=== PATIENT | male | born 1935 | race Caucasian/White ===

== ENCOUNTER 2017-10-28 09:48 | Emergency (ER) | payer MEDICARE, OTHER ==
[~2017-10-28] VITALS: Ht 177.8 cm; Wt 86.0 kg
[~2017-10-28 09:48] MED LIST: APIX5TAB PO; ATEN25TA PO; CEFT500T3 PO; COLE625 PO; ESZO3TAB4 PO; FINA5TAB2 PO; GLIM1TAB PO; HYDR25TA5 PO; IPRASOL NEB; MUCI600T PO; MULT1TAB84 PO; MULT400T PO; NEBULIZER COMPR1 KIT; OMEP20TA93 PO; PLAV75TA29 PO; PRED20 PO; RAPA8CAP PO; SACC1CAP3 PO; SYMB160A INH; TAMS5CAP PO; VENTAER INH; ZOCO40TA PO
[2017-10-28 09:50] VITALS: BP 164/72; PULSE 67; RESP 18; TEMP 97.9; O2SAT 97
[2017-10-28] MEDS ORDERED: MAGN200T PO (10:20)
[2017-10-28] MEDS ORDERED: K-PHTAB PO (10:20)
[2017-10-28] MEDS ORDERED: PROP80CA PO (10:20)
[2017-10-28] MEDS ORDERED: SUVO1TAB4 PO (10:20)
[2017-10-28] MEDS ORDERED: PANT40TA3 PO (10:20)
[2017-10-28 10:26] VITALS: RESP 16; O2SAT 98
[2017-10-28] MEDS: RESP: ALBUTEROL 2.5 MG/IPRATROPIUM 0.5 MG NEB (SCH) INH (10:41)
--- NOTE | 2017-10-28 10:42 | PD ---
HPI Chief Complaint: Cold / Flu Symptoms Time Seen by Provider: 10:29 Travel History International Travel<30 days: No Contact w/Intl Traveler<30days: No Traveled to known affect area: No History of Present Illness HPI This patient complains of cough and congestion and shortness of breath. He denies fever or chest pain. He tried a nebulizer at home without relief. He quit smoking decades ago. He's had runny nose and congestion as well. No alleviating factors. No exacerbating factors. Symptoms severity is moderate. Duration 3 days PFSH Past Medical History Hx Anticoagulant Therapy: Yes (ELIQUIS) Arthritis: Yes Asthma: Yes Atrial Fibrillation: Yes Blood Disorders: No Heart Rhythm Problems: No Cancer: No Cardiac Catheterization: Yes (18 ANGIOPLASTIES: STARTING 1992) Cardiovascular Problems: Yes (HTN, CHOL, ANGIOPLASTY, A. FIB) High Cholesterol: Yes Chest Pain: Yes Congestive Heart Failure: Yes Coronary Artery Disease: Yes Diabetes: Yes Patient Takes Glucophage: No Diminished Hearing: No Endocrine: Yes Gastrointestinal Disorders: Yes (DUMPING SYNDROME, GERD, ULCER HX, INFLAM. COLITIS, ROTAVIRUS:DECEMBER 2014) GERD: Yes Glaucoma: No Genitourinary: Yes (BPH) Headaches: Yes Hepatitis: No Hiatal Hernia: Yes Herniated Disk: Yes Hypertension: Yes Immune Disorder: No Implanted Vascular Access Dvce: No Kidney Stones: Yes (1963) Musculoskeletal: Yes (SPINAL STENOSIS, NECK PAIN, ARTHRITIS) Neurologic: Yes (ESSENTIAL TREMOR) Psychiatric: No Reproductive: No Respiratory: Yes ("CARDIAC" ASTHMA (RESOLVED)) Immunizations Current: Yes Seizures: No Shingles: Yes Thyroid Disease: No Ulcer: Yes (GASTRIC) Influenza Vaccination: Yes Past Surgical History Abdominal Surgery: Yes (LAP. AGUSTIN, [facility]. HERNIA REP.) AICD: No Body Medical Devices: CARDIAC STENTS X 3, UMBILICAL MESH Cardiac Surgery: Yes (ANGIOPLASTY 18 TIMES (MULTIPLE STENTS)) Cholecystectomy: Yes Coronary Stent: Yes (X3) Endocrine Surgery: Yes (PARATHYROID REMOVED (SIDE?)) Eye Surgery: Yes (EBONY. CATARACT EXTRACT.) Genitourinary Surgery: Yes (TUR-P ) Joint Replacement: Yes (EBONY. 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 Flomax (Tamsulosin HCl) 0.4 Mg Cap 0.4 Mg PO DAILY Rapaflo (Silodosin) 8 Mg Cap 8 Mg PO HS Glimepiride 1 Mg Tab 1 Mg PO BID Take with breakfast or first main meal Zocor (Simvastatin) 40 Mg Tab 40 Mg PO HS Hydrochlorothiazide 25 Mg Tab 25 Mg PO DAILY Review of Systems General / Constitutional: No: Fever Eyes: No: Visual changes HENT: Positive: Rhinorrhea, Congestion, No: Headaches Cardiovascular: No: Chest Pain or Discomfort Respiratory: Positive: Cough, Shortness of Breath Gastrointestinal: No: Abdominal Pain Genitourinary: No: Dysuria Musculoskeletal: No: Pain Skin: No Rash Neurologic: No: Weakness Psychiatric: No: Depression Endocrine: No: Polydipsia Hematologic/Lymphatic: No: Easy Bruising Physical Exam Narrative GENERAL: Well-nourished, well-developed patient with cough and congestion . SKIN: Focused skin assessment reveals no rash and nodules. Skin is Warm and dry. HEAD: Atraumatic. Normocephalic. EYES: Pupils equal and round. No scleral icterus. No injection or drainage. ENT: No nasal bleeding or discharge. Mucous membranes pink and moist. NECK: Trachea midline. No JVD. CARDIOVASCULAR: Regular rate and rhythm. No murmur appreciated. RESPIRATORY: No accessory muscle use. Diminished breath sounds throughout. Diffuse rhonchi. Breath sounds equal bilaterally. GASTROINTESTINAL: Abdomen soft, non-tender, nondistended. Hepatic and splenic margins not palpable. MUSCULOSKELETAL: No obvious deformities. No clubbing. No cyanosis. No edema. NEUROLOGICAL: Awake and alert. No obvious cranial nerve deficits. Motor grossly within normal limits. Normal speech. PSYCHIATRIC: Appropriate mood and affect; insight and judgment normal. Data Data Last Documented VS Vital Signs Date Time Temp Pulse Resp B/P (MAP) Pulse Ox O2 Delivery O2 Flow Rate FiO2 10/28/17 11:32 67 16 97 Room Air 10/28/17 11:31 168/76 (106) 10/28/17 09:50 97.9 Orders Orders Influenzae A/B Antigen (10/28/17 10:35) Oximetry (10/28/17 10:35) Oxygen Administration (10/28/17 10:35) Chest, Single Ap (10/28/17 10:35) Albuterol-Ipratropium Neb (Duoneb Neb) (10/28/17 10:45) Prednisone (Deltasone) (10/28/17 10:45) MDM Medical Decision Making Medical Screen Exam Complete: Yes Emergency Medical Condition: Yes Medical Record Reviewed: Yes Differential Diagnosis Bronchitis, pneumonia, flu syndrome, COPD Narrative Course I have reviewed the patient's electronic medical record. Gave him a series of 3 nebulizer treatments I gave him 80 mg prednisone I reviewed his chest x-ray which is negative Influenza swab is negative Initial room air saturation 98% He feels much better after nebulizers. He requests antibiotic. I've given him Zithromax. He has nebulizer at home to use as needed Diagnosis Primary Impression: Acute bronchitis with bronchospasm Additional Instructions: The patient was advised to follow up with their physician and return if they worsen. Med/Other Pt SpecificInfo: Other Scripts Azithromycin (Zithromax Z-Min) 250 Mg Dspk 250 MG PO DIRECTED for Infection, #1 DSPK 0 Refills 500 MG (2 tabs) day 1, then 1 tab days 2-5. Prov: Bob Saldivar MD 10/28/17 Disposition: 01 DISCHARGE HOME Condition: Stable Bob Saldivar MD Oct 28, 2017 10:42
[2017-10-28] MEDS ORDERED: predniSONE 20 MG TAB PO ONE (10:45)
--- NOTE | 2017-10-28 11:14 | RADRPT ---
EXAM DATE/TIME: 10/28/2017 10:42 [facility] COMPARISON: CHEST SINGLE AP, September 06, 2016, 20:08. INDICATIONS : Short of breath MEDICAL HISTORY : Hypertension. Hypercholesterolemia. Congestive heart failure. Afib, Asthma SURGICAL HISTORY : Coronary artery stent. Angioplasty ENCOUNTER: Initial ACUITY: 1 day PAIN SCORE: 0/10 LOCATION: Bilateral chest FINDINGS: The cardiac silhouette is enlarged in transverse diameter. The lungs are free of acute parenchymal op acity. No effusions are identified. The background interstitium is prominent though this is likely ch ronic in nature. CONCLUSION: 1. Cardiomegaly. No acute pulmonary disease. Den Andujar MD on October 28, 2017 at 11:11 Board Certified Radiologist. This report was verified electronically.
[2017-10-28 11:31] VITALS: BP 168/76; PULSE 60; RESP 16; O2SAT 97
[2017-10-28] MEDS ORDERED: ZITHTAB PO (12:19)
[2017-10-28 12:45] VITALS: BP 127/58
== END 2017-10-28 12:47 | disposition home or self-care (01) ==
LOC: PHED 09:48
DX: J20.9 Acute bronchitis, unspecified (principal); I51.7 Cardiomegaly; J45.909 Unspecified asthma, uncomplicated; I48.91 Unspecified atrial fibrillation; I11.0 Hypertensive heart disease with heart failure; I50.9 Heart failure, unspecified; E11.9 Type 2 diabetes mellitus without complications; I25.10 Atherosclerotic heart disease of native coronary artery without angina pectoris; K21.9 Gastro-esophageal reflux disease without esophagitis
CPT/HCPCS: 71045; 87804; 94640; 94664; 99284; J7512

== ENCOUNTER → 2018-01-06 | Outpatient (CLI) | payer MEDICARE, OTHER ==
[~2018-01-06] MED LIST changes: -ATEN25TA PO; -CEFT500T3 PO; -ESZO3TAB4 PO; -IPRASOL NEB; +K-PHTAB PO; +MAGN200T PO; -MUCI600T PO; -MULT1TAB84 PO; -NEBULIZER COMPR1 KIT; -OMEP20TA93 PO; +PANT40TA3 PO; -PLAV75TA29 PO; -PRED20 PO; +PROP80CA PO; +SUVO1TAB4 PO; -SYMB160A INH; -VENTAER INH; +ZITHTAB PO
[2018-01-06 13:30] LABS: AUTOMATED NEUTROPHIL # 5.1 TH/MM3 (1.8-7.7); BASOPHIL % 0.3 % (0.0-2.0); EOSINOPHIL % 0.1 % (0.0-4.0); HEMATOCRIT 36.8 % (39.0-51.0); HEMOGLOBIN 12.2 GM/DL (13.0-17.0); LYMPH % 18.7 % (9.0-44.0); LYMPHOCYTE # 1.3 TH/MM3 (1.0-4.8); MEAN CELL VOLUME 75.5 FL (80.0-100.0); MEAN CORPUSCULAR HGB CONC 33.2 % (32.0-36.0); MEAN PLATELET VOLUME 7.9 FL (7.0-11.0); MONO % 8.6 % (0.0-8.0); MONOCYTE # 0.6 TH/MM3 (0-0.9); NEUT % 72.3 % (16.0-70.0); PLATELET COUNT 239 TH/MM3 (150-450); RED BLOOD COUNT 4.87 MIL/MM3 (4.50-5.90); RED CELL DISTRIBUTION WIDTH 16.6 % (11.6-17.2)
[2018-01-06 13:47] LABS: ALBUMIN 3.6 GM/DL (3.4-5.0); AST (GOT) 14 U/L (15-37); BICARBONATE 24.5 MEQ/L (21.0-32.0); BLOOD UREA NITROGEN 14 MG/DL (7-18); CALCIUM 9.3 MG/DL (8.5-10.1); CHLORIDE 106 MEQ/L (98-107); CREATININE 0.76 MG/DL (0.60-1.30); GLOMERULAR FILTRATION RATE 98 ML/MIN (>89); GLUCOSE,FASTING 116 MG/DL (74-99); SODIUM (NA) 140 MEQ/L (136-145)
[2018-01-06 13:48] LABS: CHOLESTEROL 116 MG/DL (120-200)
[2018-01-06 13:51] LABS: C-REACTIVE PROTEIN LESS THAN 0.29 MG/DL (0.00-0.30)
[2018-01-06 13:55] LABS: ALKALINE PHOSPHATASE 88 U/L (45-117); ALT (GPT) 24 U/L (12-78); CHOLESTEROL/ HDL RATIO 1.37 RATIO; HDL CHOLESTEROL 84.5 MG/DL (40.0-60.0); LDL CHOLESTEROL 21 MG/DL (0-99); TOTAL BILIRUBIN ADULT 0.5 MG/DL (0.2-1.0); TOTAL PROTEIN 6.8 GM/DL (6.4-8.2); TRIGLYCERIDES 52 MG/DL (42-150)
[2018-01-09 17:54] LABS: ALDOLASE 5.2 U/L (< OR = 8.1)
[2018-01-11 03:51] LABS: STRIATED MUCLE AB TITER ND (<1:40)
== END ==
LOC: PLAB 09:08
PROVIDERS: ATTEND Psychiatry & Neurology Neurology
DX: G60.9 Hereditary and idiopathic neuropathy, unspecified (principal); I67.89 Other cerebrovascular disease; G70.00 Myasthenia gravis without (acute) exacerbation; G73.3 Myasthenic syndromes in other diseases classified elsewhere; E74.12 Hereditary fructose intolerance; M79.7 Fibromyalgia; I25.10 Atherosclerotic heart disease of native coronary artery without angina pectoris; D64.9 Anemia, unspecified; E21.0 Primary hyperparathyroidism; E11.9 Type 2 diabetes mellitus without complications
CPT/HCPCS: 36415; 80053; 80061; 82085; 82306; 82550; 83036; 83519; 83970; 85025; 85652; 86140; 86255